=== PATIENT | male | born 1975 | race Caucasian/White ===

== ENCOUNTER 2018-10-25 12:54 | Inpatient (IN) | payer OTHER ==
[2018-10-25 15:26] LABS: BASO % 0.4 % (0.0-2.0); EOS % 0.4 % (0.0-4.0); LYMPH # 2.9 K/uL (1.0-4.3); LYMPH % 32.2 % (20.0-40.0); MEAN CELL VOLUME 85.4 fL (80.0-94.0); MEAN CORPUSCULAR HEMOGLOBIN 28.4 pg (27.0-31.0); MEAN CORPUSCULAR HGB CONC 33.2 g/dL (33.0-37.0); MEAN PLATELET VOLUME 8.1 fL (7.2-11.7); MONO # 0.5 K/uL (0.0-0.8); MONO % 6.1 % (0.0-10.0); NEUT # 5.5 K/uL (1.8-7.0); NEUT % 60.9 % (50.0-75.0); RBC 4.94 Mil/uL (4.40-5.90); RED CELL DISTRIBUTION WIDTH 13.7 % (11.5-14.5)
[2018-10-25 15:30] LABS: SQUAMOUS EPITHIAL < 1 /hpf (0-5); URINE BILIRUBIN NEGATIVE (NEGATIVE); URINE BLOOD NEGATIVE (NEGATIVE); URINE CLARITY Clear (Clear); URINE COLOR Yellow (YELLOW); URINE GLUCOSE (UA) NORMAL (Normal); URINE LEUKOCYTE ESTERASE NEG Leu/uL (Negative); URINE PROTEIN NEGATIVE (NEGATIVE); URINE UROBILINOGEN NORMAL mg/dL (0.2-1.0)
[2018-10-25 15:44] LABS: BARBITURATES, UR NEGATIVE (NEGATIVE); PHENCYCLIDINE, UR NEGATIVE (NEGATIVE)
[2018-10-25 15:46] LABS: ALB/GLOB RATIO 1.5 (1.0-2.1); ALBUMIN 4.8 g/dL (3.5-5.0); ALT/SGPT 9 U/L (21-72); AST/SGOT 19 U/L (17-59); BENZODIAZEPINES, UR POSITIVE (NEGATIVE); BLOOD UREA NITROGEN 5 mg/dL (9-20); CALCIUM 9.2 mg/dl (8.6-10.4); GFR NON-AFRICAN AMERICAN > 60; OPIATES, UR POSITIVE (NEGATIVE)
--- NOTE | 2018-10-25 15:52 | C.PDOC ---
History Of Present Illness 43 year old male with a PMHx of substance abuse presents to the ED requesting detox from Oxycontin and Xanax. Patient voices no other complaints. He denies any suicidal or homicidal ideation. Last use was today prior to arrival. Time Seen by Provider: 10/25/18 14:45 Chief Complaint (Nursing): Substance Abuse History Per: Patient History/Exam Limitations: no limitations Onset/Duration Of Symptoms: Days Current Symptoms Are (Timing): Still Present Suicide/Self Injury Attempted (Context): None Modifying Factor(s): Other (Benzos) Associated Symptoms: denies: Suicidal Thoughts, Suicidal Plan Past Medical History Reviewed: Historical Data, Nursing Documentation, Vital Signs Vital Signs: Last Vital Signs Temp 98.5 F 10/25/18 13:49 Pulse 91 H 10/25/18 13:49 Resp 20 10/25/18 13:49 BP 150/93 H 10/25/18 13:49 Pulse Ox 98 10/25/18 13:49 - Medical History Other PMH: Substance abuse Family History: States: Unknown Family Hx - Social History Hx Tobacco Use: Yes Hx Alcohol Use: No Hx Substance Use: Yes Review Of Systems Except As Marked, All Systems Reviewed And Found Negative. Constitutional: Negative for: Fever Cardiovascular: Negative for: Chest Pain Respiratory: Negative for: Shortness of Breath Gastrointestinal: Negative for: Vomiting Psych: Positive for: Other (Substance abuse). Negative for: Suicidal ideation (or homicidal) Physical Exam - Physical Exam Appears: Non-toxic, No Acute Distress Skin: Warm, Dry, No Rash Head: Atraumatic, Normacephalic Eye(s): bilateral: Normal Inspection Neck: Normal ROM Chest: Symmetrical Cardiovascular: Rhythm Regular, No Murmur Respiratory: Normal Breath Sounds, No Accessory Muscle Use Gastrointestinal/Abdominal: Soft, No Tenderness, No Distention Extremity: Bilateral: Atraumatic, Normal ROM Pulses: Left Dorsalis Pedis: Normal, Right Dorsalis Pedis: Normal Neurological/Psych: Oriented x3, Other (Calm, Cooperative) ED Course And Treatment - Laboratory Results Result Diagrams: 10/25/18 15:17 10/25/18 15:17 Lab Results: Total Bilirubin 0.4 mg/dL (0.2-1.3) 10/25/18 15:17 AST 19 U/L (17-59) 10/25/18 15:17 ALT 9 U/L (21-72) L 10/25/18 15:17 Alkaline Phosphatase 122 U/L (38-126) 10/25/18 15:17 Total Protein 8.1 g/dL (6.3-8.3) 10/25/18 15:17 Albumin 4.8 g/dL (3.5-5.0) 10/25/18 15:17 Globulin 3.3 gm/dL (2.2-3.9) 10/25/18 15:17 Albumin/Globulin Ratio 1.5 (1.0-2.1) 10/25/18 15:17 Urine Color Yellow (YELLOW) 10/25/18 15:17 Urine Clarity Clear (Clear) 10/25/18 15:17 Urine pH 6.0 (5.0-8.0) 10/25/18 15:17 Ur Specific [place] 1.004 (1.003-1.030) 10/25/18 15:17 Urine Protein Negative mg/dL (NEGATIVE) 10/25/18 15:17 Urine Glucose (UA) Normal mg/dL (Normal) 10/25/18 15:17 Urine Ketones Negative mg/dL (NEGATIVE) 10/25/18 15:17 Urine Blood Negative (NEGATIVE) 10/25/18 15:17 Urine Nitrate Negative (NEGATIVE) 10/25/18 15:17 Urine Bilirubin Negative (NEGATIVE) 10/25/18 15:17 Urine Urobilinogen Normal mg/dL (0.2-1.0) 10/25/18 15:17 Ur Leukocyte Esterase Neg [place]/uL (Negative) 10/25/18 15:17 Urine WBC (Auto) 1 /hpf (0-5) 10/25/18 15:17 Urine RBC (Auto) < 1 /hpf (0-3) 10/25/18 15:17 Ur Squamous Epith Cells < 1 /hpf (0-5) 10/25/18 15:17 O2 Sat by Pulse Oximetry: 98 (RA) Pulse Ox Interpretation: Normal Medical Decision Making Medical Decision Making: Impression: Substance Abuse Initial Plan: - Labs sent for medical clearance Labs reviewed. UA is clear. U-tox (+) for opiates. floorworker distributor will speak with patient and arrange detox placement. Disposition Discussed With : Kaden Lutz Doctor Will See Patient In The: Hospital - Disposition Disposition: HOSPITALIZED Disposition Time: 16:16 Condition: FAIR Forms: [facility] (Kinyarwanda) - Clinical Impression Clinical Impression: Drug abuse - Scribe Statement The provider has reviewed the documentation as recorded by the Teddyibdarrius Jhaveri Provider Attestation: All medical record entries made by the Teddyibdarrius were at my direction and personally dictated by me. I have reviewed the chart and agree that the record accurately reflects my personal performance of the history, physical exam, medical decision making, and the department course for this patient. I have also personally directed, reviewed, and agree with the discharge instructions and disposition.
[2018-10-25] MEDS ORDERED: Aluminum Hydroxide/Magnesium Hydroxide Susp (30 mL) PO PRN (18:13)
--- NOTE | 2018-10-25 18:33 | PCM.BM ---
<Darek Duran - Last Filed: 10/25/18 18:31> Treatment Plan Problems - Problems identified on initial assessmt denial Date Initiated: 10/25/18 Time Initiated: 18:31 Assessment reference: NA Status: Active defensive coping Date Initiated: 10/25/18 Time Initiated: 18:33 Assessment reference: NA Status: Active hopelessness Date Initiated: 10/25/18 Time Initiated: 18:33 Assessment reference: NA Status: Active Treatment assets and liabiliti Patient Assests: adapts well, cooperative, motivated, ADL independent, good support system, cognitively intact Patient Liabilities: financial problems, substance abuse - Milieu Protocol Maintain good personal hygiene: daily Encourage regular showers, daily Remind patient to perform daily oral care, daily Assist patient to perform ADL's Conduct patient checks and document Observation sheet: Q15 minutes Maintain personal safety: every shift Educate patient to report safety concerns to staff, every shift Monitor environment for contraband/sharps Medication safety: Monitor for expected outcome, potential side effects: every shift, Assess barriers to learning: every shift, Assess readiness for medication education: every shift <Zelalme Luna - Last Filed: 10/26/18 14:03> - Diagnosis (1) Opioid use disorder, severe, dependence Status: Acute Interventions: 10/26/18 14:03 * Assess 7x/week regarding severity of withdrawal * Educate regarding risks, benefits, side effects and alternatives of medications * Use Motivational Interviewing for abstinence * Use CBT for relapse prevention * Medication management for withdrawal symptoms * Encourage medication assisted treatment * <Glo Lovett - Last Filed: 10/27/18 15:27> Family Contact Family contact name: Family contacted how many times per week?: 2 - Goals for Treatment Patient goals for treatment: Complete detox and discuss aftercare options with clinical staff. Discharge/Continuing Care - Education Needs Education Needs: Patient Medication, Patient Diagnosis/Disease Process, Patient Coping Skills, Patient Anger Management skills, Patient Placement options, Patient Community resources, Significant Other Diagnosis/Disease Process, Significant Other Community resources - Discharge Discharge Criteria: No longer exhibiting s/s of withdrawal, Reduction of target symptoms Discharge to:: Home, With Family - Treatment Team Participation Patient/Family/SO Statement: 10/27/18 15:27 Aftercare TBD as pt. is unsure as of this writing. Discussed with Family/SO: No Was Patient/Family/SO present at Treatment Team Meeting: Yes
--- NOTE | 2018-10-26 10:00 | PCM.PSYCH ---
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 He presented to the [facility] ED on 10/25 and was admitted to the [facility] detox unit for detox from opiates and benzodiazepines. On examination patient appeared disheveled and had difficulty with speech but was open to questioning. He comments that he feels incredibly unwell and that he is experiencing symptoms of withdrawal, which he describes as: frequent yawning, frequent sneezing, nausea, vomiting, chills, and a lack of energy. He feels guilty about his addiction and wants to finish detox so he can return to his family and not feel ashamed. He claims that he sniffs 45-60 30mg tablets of Oxycontin daily (which is a very high dose), and has done so for the past 2 years. His longest period of sobriety was 1.5 months and he explains that he was initially prescribed Oxycontin for knee and back pain but then started buy it off the street. He has never overdosed on Oxycontin but has had periods of blacking out. Additionally, the patient takes 10-15 1mg tablets of Xanax daily which he occasionally mixes with fentanyl, for the last 6 months. His last use of both Oxycontin and Xanax was on 10/25 right before he was admitted here. He has never been to a detox unit or to a rehabilitation unit for either Oxycontin or Xanax. He mentions cocaine use at the age of 26 for which he went to a rehabilitation center in [place] for 30 days and has not used since then. Patient denies alcohol use but says that he has been smoking 3 packs of cigarettes daily since he was 14 years old. Patient denies suicidal ideations, homicidal ideations, auditory hallucinations, and v isual hallucinations. PMHx: Back and knee problems, still has pain. PsychHx: Denies, but currently feels very depressed. He also worries a lot and is restless, tearful easily. Psych Hospitalizations: Denies FMHx: Denies Allergies: NKDA Current Medications: Active Medications Generic Name Dose Route Start Last Admin Trade Name Freq PRN Reason Stop Dose Admin Al Hydrox/Mg Hydrox/Simethicone 30 ml 10/25/18 18:13 Maalox 30 Ml PO TID PRN Indigestion / Heartburn Chlordiazepoxide 25 mg 10/25/18 18:14 10/25/18 22:00 Librium PO 25 mg Q4H PRN Administration Alcohol Withdrawal Chlordiazepoxide 25 mg 10/26/18 10:00 Librium PO 10/31/18 09:59 Q6 MILES Taper Clonidine HCl 0.1 mg 10/25/18 18:13 10/26/18 06:31 Catapres PO 0.1 mg Q4 PRN Administration COWS Score More or Equal to 5 Dicyclomine HCl 10 mg 10/25/18 18:13 Bentyl PO Q6 PRN Muscle spasm Folic Acid 1 mg 10/26/18 10:00 Folic Acid PO DAILY [facility] Gabapentin 400 mg 10/26/18 10:00 Neurontin PO TID [facility] Hydroxyzine HCl 25 mg 10/25/18 18:15 10/26/18 06:32 Atarax PO 25 mg Q6 PRN Administration Anxiety Ibuprofen 600 mg 10/25/18 18:13 Motrin Tab PO Q6 PRN Pain, moderate (4-7) Loperamide HCl 2 mg 10/25/18 18:13 Imodium PO Q8 PRN Diarrhea Multivitamins 1 tab 10/26/18 10:00 Hexavitamin PO DAILY [facility] Nicotine 1 patch 10/26/18 10:00 Nicoderm Cq TD DAILY [facility] Ondansetron HCl 4 mg 10/25/18 18:13 Zofran Tab PO Q8 PRN Nausea/Vomiting Thiamine HCl 100 mg 10/26/18 10:00 Vitamin B1 Tab PO DAILY [facility] Trazodone HCl 100 mg 10/26/18 09:51 Desyrel PO HS PRN Insomnia Past Psychiatric History - Past Psychiatric History Previous Treatment History: Intensive Outpatient Pertinent Medical Hx (Current Medical&Sleep Prob, Allergies): Allergies Allergy/AdvReac Type Severity Reaction Status Date / Time No Known Allergies Allergy Unverified 10/25/18 13:51 No Known Home Med 10/25/18 Review of Systems - Psychiatric Psychiatric: Abnormal Sleep Pattern, Anhedonia, Anxiety, Auditory Hallucinations, Depression, Difficulty Concentrating, Hopelessness, Irritability, Mood Swings, Panic Attacks. absent: Hallucinations, Homicidal Ideation, Paranoia, Suicidal Ideation Mental Status Examination - Personal Presentation Personal Presentation: Looks older than stated age (in agony, unkempt) - Affect Affect: Constricted - Motor Activity Motor Activity: Calm - Reliability in Providing Information Reliability in Providing Information: Fair - Speech Speech: Organized - Mood Mood: Depressed, Anxious - Formal Thought Process Formal Thought Process: No Impairment - Cognitive Functions Orientation: Person, Place, Situation, Time Sensorium: Alert Attention/Concentration: Easily distracted Estimate of Intelligence: Average Judgement: Intact, as evidence by: Insight regarding need for hospitalization Memory: Recent intact, as evidence by: Ability to recall events of the day, Remote intact, as evidenced by: Ability to recall historical events - Risk Risk: Withdrawal, Diminished functioning - Strength & Assets Inventory Strength & Assets Inventory: Cooperative - Limitations Limitations: Other DSM 5 DX - DSM 5 DSM 5 Diagnosis: Opioid withdrawal Opioid Use disorder, Severe Benzodiazepene withdrawal Sedative, Hypnotic and Anxiolytic Use Disorder, Severe Depressive d/o - unspecified KEYA - Recommended/Plan of Treatment Treatment Recommendations and Plan of Treatment: Taper with Methadone and Librium for Opiate Use disorder and Sedative, Hypnotic and Anxiolytic Use Disorder respectively. Gabapentin for augmentation if needed As needed medications All risks, benefits and alternatives of the meds discussed, and the pt agreed and understood. Attend groups and activities Supportive therapy and psychoeducation [place] for abstinence CBT for relapse prevention Encourage MAT Refer to rehab or IOP, and self-help groups Teach healthy lifestyle methods, i.e. diet, exercise, meditation Smoking cessation with [place] Nicotine patch if needed 34 min Projected ELOS: 4-5 Days Prognosis: Good, with treatment - Smoking Cessation Smoking Cessation Initiated: Yes
[2018-10-26] MEDS: Multiple Vitamins Tab PO SCH (10:56)
[2018-10-27] MEDS: Multiple Vitamins Tab PO SCH (10:24)
--- NOTE | 2018-10-27 14:31 | PCM.PYCHPN ---
Psychiatric Progress Note - Psychiatric Progress Note Patient seen today, length of contact: 17 min Patient Chief Complaint: "I'm not well... I feel sick" Problems Identified/Issues Discussed: The pt is seen, chart reviewed, case is discussed with staff. The pt is compliant with medications and reports no side-effects. Symptoms are improving but needs more time to stabilize and to avoid relapse. He looks sickly, refused 1--2 meds but then took it Still insisting on IV fluids for no reason (he can drink) Withdrawing but getting better too Support given, psycho-education provided. After care discussed. Medication Change: Yes (detox changes daily) Medical Record Reviewed: Yes Mental Status Examination - Cognitive Function Orientation: Person, Place, Situation, Time Memory: Intact Attention: Poor Concentration: Poor Association: WNL Fund of Knowledge: WNL - Mood Mood: Depressed, Anxious - Affect Affect: Constricted - Speech Speech: Appropriate - Formal Thought Process Formal Thought Process: No Impairment - Suicidal Ideation Suicidal Ideation: No - Homicidal Ideation Homicidal Ideation: No Goal/Treatment Plan - Goal/Treatment Plan Need for Continued Stay: Discharge may exacerbated symptoms, Severe functional impairment Progress Toward Problem(s) and Goals/Treatment Plan: Taper with Methadone and Librium for Opiate Use disorder and Sedative, Hypnotic and Anxiolytic Use Disorder respectively. Gabapentin for augmentation if needed As needed medications All risks, benefits and alternatives of the meds discussed, and the pt agreed and understood. Attend groups and activities Supportive therapy and psychoeducation [place] for abstinence CBT for relapse prevention Encourage MAT Refer to rehab or IOP, and self-help groups Teach healthy lifestyle methods, i.e. diet, exercise, meditation Smoking cessation with [place] Nicotine patch if needed
--- NOTE | 2018-10-28 08:12 | PCM.PYCHPN ---
Psychiatric Progress Note - Psychiatric Progress Note Patient seen today, length of contact: 15 min Patient Chief Complaint: I am still withdrawing. Problems Identified/Issues Discussed: She was seen and evaluated, chart reviewed and discussed with staff. Patient reports some withdrawal symptoms including shakes, anxiety, headaches and cramps. He reports anxiety but denies any suicidal ideation or homicidal ideation. He is taking medication but denies any side effects. Symptoms are improving gradually but he needs to stay longer for this evaluation. Supportive therapy was given. Medication Change: Yes Medical Record Reviewed: Yes Mental Status Examination - Cognitive Function Orientation: Person, Place, Situation, Time Memory: Intact Attention: WNL Concentration: Poor Association: WNL Fund of Knowledge: Poor - Mood Mood: Anxious - Affect Affect: Constricted - Speech Speech: Soft - Formal Thought Process Formal Thought Process: No Impairment - Suicidal Ideation Suicidal Ideation: No - Homicidal Ideation Homicidal Ideation: No Goal/Treatment Plan - Goal/Treatment Plan Need for Continued Stay: Remain at risks for inpatient hospitalization Progress Toward Problem(s) and Goals/Treatment Plan: Opioid withdrawal Opioid Use disorder, Severe Benzodiazepene withdrawal Sedative, Hypnotic and Anxiolytic Use Disorder, Severe Depressive d/o - unspecified KEYA Taper with Methadone and Librium for Opiate Use disorder and Sedative, Hypnotic and Anxiolytic Use Disorder respectively. Gabapentin for augmentation if needed As needed medications All risks, benefits and alternatives of the meds discussed, and the pt agreed and understood. Attend groups and activities Supportive therapy and psychoeducation [place] for abstinence CBT for relapse prevention Encourage MAT Refer to rehab or IOP, and self-help groups Teach healthy lifestyle methods, i.e. diet, exercise, meditation Smoking cessation with [place] Nicotine patch if needed - Smoking Cessation Smoking Cessation Initiated: No
[2018-10-28] MEDS: Multiple Vitamins Tab PO SCH (10:04)
[2018-10-29] MEDS: Multiple Vitamins Tab PO SCH (10:06)
[2018-10-30] MEDS: Multiple Vitamins Tab PO SCH (10:52)
--- NOTE | 2018-10-30 13:12 | PCM.PYCHPN ---
Psychiatric Progress Note - Psychiatric Progress Note Patient seen today, length of contact: 16 min Patient Chief Complaint: "I'm sick" Problems Identified/Issues Discussed: The pt is seen, chart reviewed, case discussed with staff. Support and psychoeducation given, CBT and [place] used briefly Pt is improving slowly and needs more time, still has ongoing symptoms. No SEs from medications, risks discussed. After care discussed - not 100% sure, maybe MAT Medication Change: Yes (detox adjusted again) Medical Record Reviewed: Yes Mental Status Examination - Cognitive Function Orientation: Person, Place, Situation, Time Memory: Intact Attention: WNL Concentration: Poor Association: WNL Fund of Knowledge: Poor - Mood Mood: Anxious - Affect Affect: Constricted - Speech Speech: Soft - Formal Thought Process Formal Thought Process: No Impairment - Suicidal Ideation Suicidal Ideation: No - Homicidal Ideation Homicidal Ideation: No Goal/Treatment Plan - Goal/Treatment Plan Need for Continued Stay: Discharge may exacerbated symptoms, Severe functional impairment Progress Toward Problem(s) and Goals/Treatment Plan: Taper with Methadone and Librium for Opiate Use disorder and Sedative, Hypnotic and Anxiolytic Use Disorder respectively. Gabapentin for augmentation if needed As needed medications All risks, benefits and alternatives of the meds discussed, and the pt agreed and understood. Attend groups and activities Supportive therapy and psychoeducation [place] for abstinence CBT for relapse prevention Encourage MAT Refer to rehab or IOP, and self-help groups Teach healthy lifestyle methods, i.e. diet, exercise, meditation Smoking cessation with [place] Nicotine patch if needed
[2018-10-31 08:39] VITALS: BP 103/77; PULSE 88; RESP 18; TEMP 97.6; O2SAT 99
--- NOTE | 2018-10-31 10:00 | PCM.PYCHDC ---
Mental Status Examination - Mental Status Examination Orientation: Person Discharge Summary - Discharge Note Consultations:: List each consultation separately and include: 1. Reason for request. 2. Findings. 3. Follow-up Summary of Hospital Course include:: 1. Description of specific treatment plan utilized for patients during their course of treatmen. 2. Summarize the time- course for resolution of acute symptoms and/or regressed behaviors. 3. Describe issues identified and worked on during hospitalization. 4. Describe medication utilized. 5. Describe medical problems identified and treated. 6. 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 He presented to the [facility] ED on 10/25 and was admitted to the [facility] detox unit for detox from opiates and benzodiazepines. On examination patient appeared disheveled and had difficulty with speech but was open to questioning. He comments that he feels incredibly unwell and that he is experiencing symptoms of withdrawal, which he describes as: frequent yawning, frequent sneezing, nausea, vomiting, chills, and a lack of energy. He feels guilty about his addiction and wants to finish detox so he can return to his family and not feel ashamed. He claims that he sniffs 45-60 30mg tablets of Oxycontin daily (which is a very high dose), and has done so for the past 2 years. His longest period of sobriety was 1.5 months and he explains that he was initially prescribed Oxycontin for knee and back pain but then started buy it off the street. He has never overdosed on Oxycontin but has had periods of blacking out. Additionally, the patient takes 10-15 1mg tablets of Xanax daily which he occasionally mixes with fentanyl, for the last 6 months. His last use of both Oxycontin and Xanax was on 10/25 right before he was admitted here. He has never been to a detox unit or to a rehabilitation unit for either Oxycontin or Xanax. He mentions cocaine use at the age of 26 for which he went to a rehabilitation center in [place] for 30 days and has not used since then. Patient denies alcohol use but says that he has been smoking 3 packs of cigarettes daily since he was 14 years old. Patient denies suicidal ideations, homicidal ideations, auditory hallucinations, and visual hallucinations. PMHx: Back and knee problems, still has pain. PsychHx: Denies, but currently feels very depressed. He also worries a lot and is restless, tearful easily. Psych Hospitalizations: Denies FMHx: Denies Allergies: NKDA He will go to MAT - Diagnosis (1) Opioid use disorder, severe, dependence Status: Acute - Final Diagnosis (DSM 5) Condition upon Discharge: FAIR Disposition: HOME/ ROUTINE Follow-up Treatment Plan: Taper with Methadone and Librium for Opiate Use disorder and Sedative, Hypnotic and Anxiolytic Use Disorder respectively. Gabapentin for augmentation if needed As needed medications All risks, benefits and alternatives of the meds discussed, and the pt agreed and understood. Attend groups and activities Supportive therapy and psychoeducation [place] for abstinence CBT for relapse prevention Encourage MAT Refer to rehab or IOP, and self-help groups Teach healthy lifestyle methods, i.e. diet, exercise, meditation Smoking cessation with [place] Nicotine patch if needed Prescriptions/Medication Reconciliation: Cyclobenzaprine [Flexeril] 5 mg PO TID #30 tab Gabapentin [Neurontin] 400 mg PO TID #90 cap Mirtazapine [Remeron] 15 mg PO HS #30 tab QUEtiapine [Seroquel] 100 mg PO HS #30 tab traZODone [Desyrel] 100 mg PO HS PRN #30 tab PRN Reason: Insomnia
== END 2018-10-31 08:40 | disposition home or self-care (01) | DRG 754 ==
LOC: C.ER 12:54 → C.7D 16:16
PROC: GZ56ZZZ Individual Psychotherapy, Supportive (ICD-10-PCS; principal; 2018-10-25)
DX: F32.9 Major depressive disorder, single episode, unspecified (principal); F13.20 Sedative, hypnotic or anxiolytic dependence, uncomplicated; F11.23 Opioid dependence with withdrawal; F41.9 Anxiety disorder, unspecified; F17.210 Nicotine dependence, cigarettes, uncomplicated